=== PATIENT | female | born 1950 | race Caucasian/White ===

== ENCOUNTER → 2016-12-01 | Outpatient (CLI) | payer MEDICARE, OTHER ==
--- NOTE | 2016-12-01 14:37 | RADRPT ---
PROCEDURE: XR right knee. CLINICAL INDICATION: Knee pain TECHNIQUE: AP weightbearing, PA weightbearing, lateral weightbearing and sunrise views are availab le for review. COMPARISON: 07/06/2014 FINDINGS: The osseous structures are normal in mineralization, architecture and alignment. No fractures are i dentified. No osseous lesions are identified. The joints are unremarkable. The soft tissues are u nremarkable. IMPRESSION: Unremarkable examination RPTAT: [facility] .Trae Morley MD, MD Date Time Electronically viewed and signed by .Trae Morley MD, on 12/01/2016 14:37 .B/
== END | disposition home or self-care (01) ==
LOC: HKI 13:35
PROVIDERS: ATTEND Orthopaedic Surgery
DX: M25.561 Pain in right knee (principal); S80.01XA Contusion of right knee, initial encounter
CPT/HCPCS: 73564; G0463